=== PATIENT | female | born 1995 | race Caucasian/White ===

== ENCOUNTER 2021-09-15 19:58 | Emergency (ER) | payer SELFPAY ==
--- NOTE | 2021-09-15 20:14 | ED EENT ---
History of Present Illness General Chief Complaint: Eye Problems Stated Complaint: LEFT EYE PAIN Nursing Triage Note: Pt presents with left eye pain. Pt states she was around a [place] spice gr[place] and thinks wood might have hit her eye. Pt states this happened around noon and she flushed her eye multiple times with no relief. History of Present Illness Date Seen by Provider: Sep 15, 2021 Time Seen by Provider: 20:12 Initial Comments 26-year-old female is here with complaints of left eye foreign body sensation after a wood chip went into her eye earlier today. Patient now feels irritation in the eye with associated photophobia and redness. Allergies and Home Medications Allergies Coded Allergies: amoxicillin (Verified Allergy, Unknown, 09/15/21) Patient Home Medication List Home Medication List Reviewed: Yes Erythromycin Base (Erythromycin Opthalmic Ointment) 1 Gm Oint...g., 0 OP Q4H Prescribed by: JAMILA MEDINA MD on 09/15/212029 Last Action: New Order Review of Systems Review of Systems Constitutional: no symptoms reported Eyes: Blurred Vision, Foreign Body Sensation, Inflammation Ears: No Symptoms Reported Nose: no symptoms reported Mouth: no symptoms reported Throat: no symptoms reported Respiratory: no symptoms reported Cardiovascular: no symptoms reported Gastrointestinal: no symptoms reported Musculoskeletal: no symptoms reported Skin: no symptoms reported Neurological: No Symptoms Reported Past Knfvhpr-[id number]-Vylzrf Hx Patient Social History Tobacco Use?: No Use of E-Cig and/or Vaping dev: No Substance use?: No Alcohol Use?: No Pt feels they are or have been: No Physical Exam Vital Signs Vital Signs - First Documented 09/15/21 20:03 Pulse 97 Resp 18 B/P (MAP) 140/84 (102) Pulse Ox 98 O2 Delivery Room Air Height, Weight, BMI Height: '" Weight: lbs. oz. kg; BMI Method: General Appearance: no apparent distress Eyes: right eye normal inspection; left eye conjunctival inflammation; bilateral eye PERRL, bilateral eye EOMI Procedures/Interventions Eye : Location: left eye Anesthesia (gtts): Tetracaine Progress/Procedure Conclusion browning lamp and fluorescin strip under tetracaine for pain relief: 6:00 abrasion present. no foreign body Progress/Results/Core Measures Results/Orders My Orders Orders - JAMILA MEDINA MD Fluorescein Strips ([id number]-A-Caxvgx) (09/15/21 20:16) Tetracaine 0.5% Ophth Fior Sdv (Tetracai (09/15/21 20:16) Tetracaine 0.5% Ophth Fior Sdv (Tetracai (09/15/21 20:30) Vital Signs/I&O 09/15/21 20:03 Pulse 97 Resp 18 B/P (MAP) 140/84 (102) Pulse Ox 98 O2 Delivery Room Air Blood Pressure Mean: 102 Progress Progress Note : Progress Note 1. LEFT CORNEAL ABRASION: - seen under Wood's lamp after tetracaine and fluorescin strip: abrasion at 6:00position: no foreign body present - Erythromycin ophthalmic ointment Q4H - eye patch - F/u with ophthalmology within 3 to 5 days. -Ibuprofen as needed pain Departure Impression Primary Impression: Left corneal abrasion Qualified Codes: S05.02XA - Injury of conjunctiva and corneal abrasion without foreign body, left eye, initial encounter Disposition: HOME, SELF-CARE Condition: Improved Departure-Patient Inst. Referrals: NO,LOCAL PHYSICIAN (PCP/Family) Primary Care Physician Patient Instructions: Corneal Abrasion (DC) Add. Discharge Instructions: F/u with [facility] and PCP within 3 to 5 days All discharge instructions reviewed with patient and/or family. Voiced understanding. Scripts Erythromycin Base (Erythromycin Opthalmic Ointment) 1 Gm Oint...g. 0 OP Q4H for 10 Days, #1 EA 1/2 inch Prov: JAMILA MEDINA MD 09/15/21 JAMILA MEDINA MD Sep 15, 2021 20:14
[2021-09-15] MEDS ORDERED: FLUORESCEIN (FLUOR-I-STRIPS) 1 MG STRP ONE (20:16)
[2021-09-15] MEDS ORDERED: TETRACAINE 0.5% OPHTH SOLN 4 ML BTL (SINGLE DOSE ONLY) ONE (20:16)
[2021-09-15] MEDS ORDERED: TETRACAINE 0.5% OPHTH SOLN 4 ML BTL (SINGLE DOSE ONLY) OP ONE (20:30)
[2021-09-15] MEDS ORDERED: ERYT1OIN6 OP (20:30)
[2021-09-15 20:39] VITALS: BP 140/84
[2021-09-15] MEDS ORDERED: ERYTHROMYCIN OPHTH OINT 1 GM (SINGLE USE) TUBE ONE (20:40)
[2021-09-15] MEDS ORDERED: ERYTHROMYCIN OPHTH OINT 1 GM (SINGLE USE) TUBE OP SCH (22:00)
== END 2021-09-15 20:41 | disposition home or self-care (01) ==
LOC: ER FS 20:02
DX: S05.02XA Injury of conjunctiva and corneal abrasion without foreign body, left eye, initial encounter (principal); W45.8XXA Other foreign body or object entering through skin, initial encounter
CPT/HCPCS: 99281